=== PATIENT | male | born 1970 | race Caucasian/White ===

== ENCOUNTER 2016-08-05 15:32 | Emergency (ER) | payer MEDICAID ==
[2016-08-05 16:16] VITALS: BP 119/73
[2016-08-05] MEDS ORDERED: Tetracaine HCl/PF 0.5% 4 ML Bottle EYERT ONE (17:18)
[2016-08-05] MEDS ORDERED: Fluorescein 1 MG Ophth Strip EYERT ONE (17:19)
--- NOTE | 2016-08-05 17:53 | EDM.PDOC ---
[id number], [id number] Time Seen by Provider: 08/05/16 17:11 Source of Information: Reports: Patient History Limitations: Reports: No limitations - History of Present Illness INITIAL COMMENTS - FREE TEXT/NARRATIVE: He was grinding metal yesterday at home. He got something in the right eye. He had eye pain yesterday which has worsened today. He was not using any protective eye wear. He has had right eye pain. No left eye problems. Timing/Duration: Reports: Day(s): (started yesterday) Severity: severe (right eye pain) Quality: Reports: Sharp Improves with: Reports: None Worsens with: Reports: None Associated Symptoms: Reports: no other symptoms - Related Data Allergies/ADRs: Allergies Allergy/AdvReac Type Severity Reaction Status Date / Time Penicillins Allergy Cannot Verified 08/05/16 16:25 Remember Home Meds: Home Meds . [No Known Home Meds] 08/05/16 [History] Past Medical History - Past Surgical History HEENT Surgical History: Reports: Tonsillectomy Cardiovascular Surgical History: Reports: Valve replacement Musculoskeletal Surgical History: Reports: Arthroscopic knee, Other (see below) Other Musculoskeletal Surgeries/Procedures:: cyst on the wrist Social & Family History - Tobacco Use Smoking Status *Q: Current Every Day Smoker Years of Tobacco use: 35 Packs/Tins Daily: 3 Second Hand Smoke Exposure: Yes - Caffeine Use Caffeine Use: Reports: Soda - Recreational Drug Use Recreational Drug Use: No ED ROS ENT - Review of Systems Review Of Systems: See Below Constitutional: Reports: no symptoms HEENT: Reports: Eye pain (right eye). Denies: Contact Lenses ED EXAM, ENT - Physical Exam Exam: See Below Exam Limited By: No limitations General Appearance: alert Eye Exam: bilateral eye: conjunctival injection, PERRL (3 mm), other (right eyelid blepharospasm) Neurological: alert, normal cognition Course - Vital Signs Last Recorded V/S: Last Vital Signs Temp 99.3 F 08/05/16 16:15 Pulse 69 08/05/16 16:15 Resp 16 08/05/16 16:15 BP 119/73 08/05/16 16:15 Pulse Ox 97 08/05/16 16:15 - Orders/Labs/Meds Meds: Medications Discontinued Medications Generic Name Dose Route Start Last Admin Trade Name Freq PRN Reason Stop Dose Admin Fluorescein Sodium 1 mg 08/05/16 17:19 08/05/16 17:32 Ful-Maira EYERT 08/05/16 17:20 1 mg ONETIME ONE Administration Tetracaine HCl 2 ml 08/05/16 17:18 08/05/16 17:33 Tetracaine 0.5% Steri-Unit Kamla EYERT 08/05/16 17:19 2 ml ASDIRECTED ONE Administration - Re-Assessments/Exams Free Text/Narrative Re-Assessment/Exam: 08/05/16 17:56 I instilled 3 drops of tetracaine and he still had pain. I told I would give it a few minutes to work and he left. The right eye had blepharospasm and was moderate to severely injected bulbar conjunctiva and palpebral conjunctiva. He left before I came back to see him. His son was with him. Departure - Departure Time of Disposition: 17:52 Disposition: Eloped 07 Condition: good Clinical Impression: Pain, eye, right Referrals: PCP,Unobtain [Primary Care Provider] - Forms: ED Department Discharge
== END 2016-08-05 17:52 | disposition left against medical advice (07) ==
LOC: DL.ED 15:32
DX: G24.5 Blepharospasm (principal); F17.210 Nicotine dependence, cigarettes, uncomplicated; Z98.890 Other specified postprocedural states; Z88.0 Allergy status to penicillin
CPT/HCPCS: 99283; A9270; 99282

== ENCOUNTER 2017-07-02 13:44 | Emergency (ER) | payer MEDICAID ==
[2017-07-02 14:04] VITALS: BP 180/93
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
== END 2017-07-02 15:22 | disposition home or self-care (01) ==
LOC: DL.ED 13:44
DX: S09.90XA Unspecified injury of head, initial encounter (principal); S05.11XA Contusion of eyeball and orbital tissues, right eye, initial encounter; F17.210 Nicotine dependence, cigarettes, uncomplicated; Z88.0 Allergy status to penicillin; W55.22XA Struck by cow, initial encounter
CPT/HCPCS: 70486; 99284